=== PATIENT | male | born 1950 | race Caucasian/White ===

== ENCOUNTER 2016-10-13 10:41 | Emergency (ER) | payer OTHER ==
--- NOTE | 2016-10-13 11:58 | ED MAR SUMMARY ---
..... Medication Administration Record [facility] [address] [place], [place] [id number] Patient: MINESH PEPE Visit ID: [id number] 66y, M Weight: 70.3 kg Height/Length: 66 in BMI: 25 ALLERGIES: No Known Drug Allergy
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
--- NOTE | 2016-10-13 11:58 | ED MED RECONCILIATION SUMMARY ---
Patient: MINESH PEPE Medication Reconciliation Report [facility] VisitID: [id number] [address] [place] [place] [address] 66y, M Registration Date/Time: 10/13/2016 Weight: 70.3 kg Height/Length: 66 in. BMI: 25.0 ALLERGIES: No Known Drug Allergy The patient's Home Medications are listed below: THE FOLLOWING MEDICATIONS NEED TO BE RECONCILED: Acetaminophen-Codeine Oral Carbidopa-Levodopa Oral Cyclobenzaprine HCl Oral Pramipexole Dihydrochloride Oral The source(s) of the original Home Medication information: patient The following Medications were given to the patient in the Emergency Department: None. The following Medications were prescribed to the patient: None.
--- NOTE | 2016-10-13 11:58 | ED MAR SUMMARY ---
..... Medication Administration Record [facility] [address] [place], [place] [id number] Patient: MINESH PEPE Visit ID: [id number] 66y, M Weight: 70.3 kg Height/Length: 66 in BMI: 25 ALLERGIES: No Known Drug Allergy
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
--- NOTE | 2016-10-13 11:58 | ED MED RECONCILIATION SUMMARY ---
Patient: MINESH PEPE Medication Reconciliation Report [facility] VisitID: [id number] [address] [place] [place] [address] 66y, M Registration Date/Time: 10/13/2016 Weight: 70.3 kg Height/Length: 66 in. BMI: 25.0 ALLERGIES: No Known Drug Allergy The patient's Home Medications are listed below: THE FOLLOWING MEDICATIONS NEED TO BE RECONCILED: Acetaminophen-Codeine Oral Carbidopa-Levodopa Oral Cyclobenzaprine HCl Oral Pramipexole Dihydrochloride Oral The source(s) of the original Home Medication information: patient The following Medications were given to the patient in the Emergency Department: None. The following Medications were prescribed to the patient: None.
== END 2016-10-13 11:55 | disposition home or self-care (01) ==
LOC: ED SRH 10:41
DX: Z53.21 Procedure and treatment not carried out due to patient leaving prior to being seen by health care provider (principal)
CPT/HCPCS: 90004; 90939